=== PATIENT | male | born 1940 | race Caucasian/White ===

== ENCOUNTER 2017-02-05 16:53 | Emergency (ER) | payer OTHER, BC, MEDICARE ==
[~2017-02-05 16:53] MED LIST: ASAB PO; FORTAMET500 MG PO; HYZAAR 50/12.51 TAB PO; LOP25 PO; MCZ25 PO; NIASPAN500 PO; PRIN20 PO; REQUIP5 PO; SIMCOR1 TA2 PO; ZOCOR20 PO
== END 2017-02-05 18:12 | disposition home or self-care (01) ==
LOC: ER 16:53
DX: S29.011A Strain of muscle and tendon of front wall of thorax, initial encounter (principal); I10 Essential (primary) hypertension; Z79.82 Long term (current) use of aspirin; Z79.4 Long term (current) use of insulin; Z79.899 Other long term (current) drug therapy; V49.9XXA Car occupant (driver) (passenger) injured in unspecified traffic accident, initial encounter
CPT/HCPCS: 71101; 99284; A9270-GY